=== PATIENT | male | born 1960 | race Caucasian/White ===

== ENCOUNTER 2017-03-16 08:57 | Day surgery (SDC) | payer OTHER ==
[~2017-03-16] VITALS: Ht 182.9 cm; Wt 120.0 kg
[~2017-03-16 08:57] MED LIST: AMLODIPINE BESY10 MG PO; CARDIZEM CD,CA240 MG PO; CARVEDILOL12.5 MG PO; CITALOPRAM HBR20 MG PO; COREG25 M1 PO; ELIQUIS5 MG PO; FUROSEMIDE20 MG PO; LISINOPRIL5 MG PO; MULTAQ400 MG PO; ONE DAILY FOR1 EACH PO
== END 2017-03-16 11:15 | disposition home or self-care (01) ==
LOC: CATH 08:57
PROC: 5A2204Z Restoration of Cardiac Rhythm, Single (ICD-10-PCS; principal; 2017-03-16)
DX: I48.1 Persistent atrial fibrillation (principal); I48.0 Paroxysmal atrial fibrillation; I42.0 Dilated cardiomyopathy; I50.22 Chronic systolic (congestive) heart failure; I11.0 Hypertensive heart disease with heart failure; G47.33 Obstructive sleep apnea (adult) (pediatric); E78.5 Hyperlipidemia, unspecified; E66.9 Obesity, unspecified; Z68.37 Body mass index [BMI] 37.0-37.9, adult; Z82.49 Family history of ischemic heart disease and other diseases of the circulatory system; Z79.01 Long term (current) use of anticoagulants; Z87.891 Personal history of nicotine dependence; I27.2 Other secondary pulmonary hypertension
CPT/HCPCS: 93005

== ENCOUNTER 2017-08-31 08:31 | Day surgery (SDC) | payer OTHER ==
[~2017-08-31] VITALS: Ht 182.9 cm; Wt 118.0 kg
[~2017-08-31 08:31] MED LIST changes: +WELLBUTRIN SR150 MG PO
== END 2017-08-31 11:40 | disposition home or self-care (01) ==
LOC: CATH 08:31 → EDSTATUS 09:33 → 2SOUTH 10:00 → CATH 11:40 → 2SOUTH 15:45
PROC: 5A2204Z Restoration of Cardiac Rhythm, Single (ICD-10-PCS; principal; 2017-08-31)
DX: I48.0 Paroxysmal atrial fibrillation (principal); I42.0 Dilated cardiomyopathy; I11.0 Hypertensive heart disease with heart failure; I50.22 Chronic systolic (congestive) heart failure; G47.33 Obstructive sleep apnea (adult) (pediatric); E66.9 Obesity, unspecified; Z68.33 Body mass index [BMI] 33.0-33.9, adult; Z79.01 Long term (current) use of anticoagulants; Z87.891 Personal history of nicotine dependence
CPT/HCPCS: 93005; J2250